=== PATIENT | female | born 1955 | race Caucasian/White ===

== ENCOUNTER 2016-12-09 12:08 | Day surgery (SDC) | payer BC ==
[~2016-12-09] VITALS: Ht 162.6 cm; Wt 64.5 kg
[~2016-12-09 12:08] MED LIST: ONDANSETRON 2MG/ML, 2ML ONE; PROPOFOL 10 MG/ML, 20ML ONE; ROCURONIUM 10 MG/ML ONE
[2016-12-09] MEDS ORDERED: ONDA4TAB7 PO (12:44)
[2016-12-09] MEDS ORDERED: HYDR-3307 PO (12:44)
[2016-12-09 13:06] VITALS: BP 131/77
[2016-12-09] MEDS ORDERED: LACTATED RINGERS 1,000 ML IV SCH (13:12)
[2016-12-09] MEDS ORDERED: FENTANYL PF 100 MCG/2ML ONE ×3 (14:49→16:38)
[2016-12-09] MEDS ORDERED: MEPERIDINE/PF 25MG/0.5ML IVPush PRN (15:30)
[2016-12-09] MEDS ORDERED: hydrALAzine 20 MG/ML, 1ML IV PRN (15:30)
[2016-12-09] MEDS ORDERED: HYDROmorphone 1 MG/ML, 1ML IV PRN (15:30)
[2016-12-09] MEDS ORDERED: PROMETHAZINE 25 MG/ML, 1ML IV PRN (15:30)
[2016-12-09] MEDS ORDERED: MIDAZOLAM 1 MG/ML, 2ML IV PRN (15:30)
[2016-12-09] MEDS ORDERED: LABETALOL 5MG/ML, 20ML IV PRN (15:30)
[2016-12-09] MEDS ORDERED: ONDANSETRON 2MG/ML, 2ML IVPush PRN (15:30)
[2016-12-09] MEDS ORDERED: OXYcodone 5 MG/5 ML ORAL.SOL UDC PO PRN (15:30)
[2016-12-09] MEDS ORDERED: OXYcodone 5 MG/5 ML ORAL.SOL UDC ONE (16:13)
[2016-12-09] MEDS: FENTANYL PF 100 MCG/2ML IV PRN ×4 (16:19→16:58)
[2016-12-09] MEDS ORDERED: ONDANSETRON 2MG/ML, 2ML ONE (16:28)
[2016-12-09] MEDS ORDERED: PROMETHAZINE 25 MG/ML, 1ML ONE (16:43)
[2016-12-09] MEDS ORDERED: HYDROmorphone 1 MG/ML, 1ML ONE (17:00)
== END 2016-12-09 20:03 ==
LOC: OUT 12:08
PROVIDERS: ATTEND Urology
DX: N13.2 Hydronephrosis with renal and ureteral calculous obstruction (principal); E78.00 Pure hypercholesterolemia, unspecified; Z98.890 Other specified postprocedural states
CPT/HCPCS: 52356; 74000; 76001; C1726; C1758; C1769; C2617; J1170; J2405; J2550; J2704; J3010; J7120